=== PATIENT | female | born 1950 | race Two or more races ===

== ENCOUNTER 2021-05-18 01:25 | Emergency (ER) | payer MEDICAID ==
[~2021-05-18] VITALS: Ht 160 cm; Wt 70.0 kg
--- NOTE | 2021-05-18 01:35 | NUR ---
EKG DONE IN TRIAGE.
[2021-05-18 02:36] LABS: ALANINE AMINOTRANSFERASE 94 U/L (12-78); ANION GAP 6 mmol/L (5-15); CALCIUM 8.4 mg/dL (8.5-10.1); CHLORIDE 98 mmol/L (98-107); CREATININE 0.65 mg/dL (0.55-1.02)
[2021-05-18 02:39] LABS: ALKALINE PHOSPHATASE 87 U/L (45-117); BILIRUBIN,TOTAL 0.2 mg/dL (0.2-1.0); TOTAL PROTEIN 7.6 g/dL (6.4-8.2)
[2021-05-18 02:44] LABS: BASOPHILS % (AUTO) 0 % (0-1); EOSINOPHILS % (AUTO) 0 % (1-7); LYMPHOCYTES % (AUTO) 27 % (22-44); MEAN CORPUSCULAR HEMOGLOBIN 31.7 pg (27.0-34.8); MEAN CORPUSCULAR HGB CONC 34.1 g/dL (32.4-35.8); MEAN PLATELET VOLUME 9.1 fL (7.4-10.4); MONOCYTES % (AUTO) 8 % (2-9); NEUTROPHILS % (AUTO) 66 % (42-75); PLATELET COUNT 205 x10^3/uL (130-400); RED CELL DISTRIBUTION WIDTH 13.1 % (9.6-15.2)
--- NOTE | 2021-05-18 04:07 | NUR ---
pt to room from lobby
[2021-05-18] MEDS ORDERED: SODIUM CHLORIDE 0.9% 1,000ML IVBOLUS ONE (06:00)
[2021-05-18] MEDS ORDERED: ONDANSETRON 2MG/ML, 2ML IVPush ONE (06:00)
[2021-05-18] MEDS ORDERED: SODIUM CHLORIDE FLUSH 10ML SYR IVF ONE (06:00)
[2021-05-18] MEDS ORDERED: ONDANSETRON 2MG/ML, 2ML ONE (06:09)
[2021-05-18] MEDS ORDERED: OMNIPAQUE 350 MG/ML, 100ML BOTTLE ONE (06:36)
[2021-05-18] MEDS ORDERED: ASPIRIN 81 MG TABLET CHEW PO ONE (07:30)
[2021-05-18 07:39] LABS: FREE T4 (FREE THYROXINE) 1.32 ng/dL (0.76-1.46)
[2021-05-18] MEDS ORDERED: DEXAMETHASONE 4 MG/ML, 5ML ONE (08:26)
[2021-05-18] MEDS ORDERED: ASPIRIN 81 MG TABLET CHEW ONE (08:27)
[2021-05-18] MEDS ORDERED: DEXAMETHASONE 4 MG/ML, 1ML IVPush ONE (08:30)
[2021-05-18 08:41] VITALS: BP 114/74
--- NOTE | 2021-05-18 09:07 | NUR ---
REPORT FROM ROSITA MCNALLY. PT RESTING IN [facility], MONITORING IN PLACE, NADN AT THIS TIME, PT STATES NO NEEDS AT THIS TIME, WCTM.
--- NOTE | 2021-05-18 09:14 | NUR ---
PT AND PT'S DAUGHTER VERBALIZED UNDERSTANDING OF DISCHARGE INSTRUCTIONS AND EDUCATION.
== END 2021-05-18 09:21 | disposition home or self-care (01) ==
LOC: ED 06:55
DX: U07.1 COVID-19 (principal); J12.82 Pneumonia due to coronavirus disease 2019; R11.2 Nausea with vomiting, unspecified
CPT/HCPCS: 36415; 71045; 74177; 80053; 84439; 84443; 85025; 87040; 93005; 96361; 96374; 96375; 99285; J1100; J2405; J7030; Q9967